=== PATIENT | female | born 1955 | race American Indian/Alaskan Native ===

== ENCOUNTER 2017-09-27 08:33 | Inpatient (IN) | payer OTHER, MEDICAID ==
[~2017-09-27] VITALS: Ht 157.5 cm; Wt 78.5 kg
[~2017-09-27 08:33] MED LIST: ALDACTONE50 MG PO; ELA10 PO; LASIX40 MG PO; OMEPRAZOLE DR20 M1 PO; ZOFRAN ODT4 MG SL
[2017-09-27 09:45] LABS: BASOPHIL % 0 % (0-2); PLATELET COUNT 53 x10^3mcL (130-400); RED CELL DISTRIBUTION WIDTH 17.7 % (11.5-14.5)
[2017-09-27 09:49] LABS: microscopic required? YES; urine erythrocyte 2+ (NEGATIVE)
[2017-09-27 10:32] LABS: AMPHETAMINE QUAL UR NONE DETECTED (NEG <=1000)
[2017-09-27 10:37] LABS: BILIRUBIN TOTAL 2.2 mg/dL (0.20-1.00); CALCIUM 8.7 mg/dL (8.5-10.1); CARBON DIOXIDE 21.7 mmol/L (21-32); CREATININE SERUM 1.7 mg/dL (0.6-1.0); TOTAL PROTEIN, SERUM 6.5 g/dL (6.4-8.2)
[2017-09-27 10:40] LABS: ALBUMIN 2.8 g/dL (3.4-5.0); T4(THYROXINE) 3.7 ug/dL (4.7-13.3)
[2017-09-27 11:46] LABS: MAGNESIUM 1.7 mg/dL (1.8-2.4); PHOSPHOROUS 2.3 mg/dL (2.5-4.9)
[2017-09-27 11:47] LABS: CHOLESTEROL/HDL RATIO 2.3
[2017-09-27 11:53] LABS: FREE T4 0.81 ng/dL (0.76-1.46); FREE THYROXINE INDEX 1.7 ug/dL (1.4-4.5); T4(THYROXINE) 4.8 ug/dL (4.7-13.3)
[2017-09-27 12:00] VITALS: BP 105/54
[2017-09-27 12:00] LABS: T3 TOTAL 0.36 ng/mL
[2017-09-27 13:15] VITALS: BP 113/52
[2017-09-27 20:50] VITALS: BP 97/44
[2017-09-28 05:43] VITALS: BP 117/46
[2017-09-28 06:07] LABS: CALCIUM 7.9 mg/dL (8.5-10.1); CREATININE SERUM 1.5 mg/dL (0.6-1.0); MAGNESIUM 1.7 mg/dL (1.8-2.4); PHOSPHOROUS 2.9 mg/dL (2.5-4.9); POTASSIUM SERUM 3.5 mmol/L (3.5-5.1)
[2017-09-28 06:34] LABS: BASOPHIL % 0 % (0-2); RED CELL DISTRIBUTION WIDTH 17.9 % (11.5-14.5)
[2017-09-28 06:39] LABS: PLATELET COUNT 48 x10^3mcL (130-400)
[2017-09-28 09:18] VITALS: BP 135/49
[2017-09-28 12:18] VITALS: BP 147/50
[2017-09-28 18:00] VITALS: BP 126/47
[2017-09-28 21:49] VITALS: BP 125/41
[2017-09-29 06:08] VITALS: BP 125/48
[2017-09-29 07:04] LABS: CALCIUM 7.5 mg/dL (8.5-10.1); CARBON DIOXIDE 19.2 mmol/L (21-32); CREATININE SERUM 1.4 mg/dL (0.6-1.0); MAGNESIUM 1.7 mg/dL (1.8-2.4); PHOSPHOROUS 2.4 mg/dL (2.5-4.9); POTASSIUM SERUM 3.4 mmol/L (3.5-5.1)
[2017-09-29 07:22] LABS: RED CELL DISTRIBUTION WIDTH 17.7 % (11.5-14.5)
[2017-09-29 08:37] LABS: BAND NEUTROPHIL 3 % (0-10); MONOCYTE 14 % (0-7); SEGMENTED NEUTROPHILS 76 % (37-75)
[2017-09-29 08:38] LABS: rbc morphology (normal/abnorm) ABNORMAL (NORMAL)
[2017-09-29 08:55] LABS: PLATELET COUNT 43 x10^3mcL (130-400)
[2017-09-29 09:00] VITALS: BP 123/42
[2017-09-29 13:19] VITALS: BP 135/46
[2017-09-29 16:28] VITALS: BP 141/45
[2017-09-29 21:23] VITALS: BP 139/53
[2017-09-30 06:04] VITALS: BP 122/50
[2017-09-30 06:29] LABS: CALCIUM 7.5 mg/dL (8.5-10.1); CARBON DIOXIDE 19.4 mmol/L (21-32); CREATININE SERUM 1.2 mg/dL (0.6-1.0); MAGNESIUM 1.8 mg/dL (1.8-2.4); PHOSPHOROUS 2.2 mg/dL (2.5-4.9); POTASSIUM SERUM 3.9 mmol/L (3.5-5.1)
[2017-09-30 06:47] LABS: BASOPHIL % 0.2 % (0-2)
[2017-09-30 06:51] LABS: PLATELET COUNT 47 x10^3mcL (130-400)
[2017-09-30 08:43] VITALS: BP 134/47
[2017-09-30] MEDS ORDERED: LEVAQUIN750 MG PO (10:54)
[2017-09-30] MEDS ORDERED: LAC PO (10:54)
[2017-09-30] MEDS ORDERED: BACO TOP (10:55)
[2017-09-30] MEDS ORDERED: HIBICLENS118 ML TOP (10:55)
[2017-09-30] MEDS ORDERED: IMO2 PO (11:14)
[2017-09-30 11:31] VITALS: BP 134/47
[2017-10-01 08:55] VITALS: Ht 157.5 cm; Wt 78.5 kg
== END 2017-09-30 13:39 | disposition home or self-care (01) | DRG 871 ==
LOC: ED 08:33 → DU 10:52
PROVIDERS: Emergency Medicine; Family Medicine
DX: A41.9 Sepsis, unspecified organism (principal); N17.0 Acute kidney failure with tubular necrosis; I50.43 Acute on chronic combined systolic (congestive) and diastolic (congestive) heart failure; E43 Unspecified severe protein-calorie malnutrition; N39.0 Urinary tract infection, site not specified; R18.8 Other ascites; E87.1 Hypo-osmolality and hyponatremia; R65.20 Severe sepsis without septic shock; B96.20 Unspecified Escherichia coli [E. coli] as the cause of diseases classified elsewhere; R31.29 Other microscopic hematuria; K74.69 Other cirrhosis of liver; B19.20 Unspecified viral hepatitis C without hepatic coma; D69.59 Other secondary thrombocytopenia; E87.6 Hypokalemia; E83.39 Other disorders of phosphorus metabolism; E83.42 Hypomagnesemia; K21.9 Gastro-esophageal reflux disease without esophagitis; R16.1 Splenomegaly, not elsewhere classified; K80.20 Calculus of gallbladder without cholecystitis without obstruction; M51.37 Other intervertebral disc degeneration, lumbosacral region
CPT/HCPCS: 76770; 82962; 83880; 84439; 87804; J1885; J1956; J3490; J7030; J7050; Q0092; Q0162